=== PATIENT | female | born 1985 | race Hispanic/Latino ===

== ENCOUNTER 2018-04-10 07:11 | Day surgery (SDC) | payer BC ==
[~2018-04-10] VITALS: Ht 160 cm; Wt 69.9 kg
[2018-04-19 16:45] VITALS: BP 129/76
[2018-04-19 16:58] LABS: BASOPHILS % (AUTO) 0.7 % (0.0-5.0); EOSINOPHILS % (AUTO) 2.7 % (0.0-8.0); HEMATOCRIT 39.4 % (36-48); LYMPHOCYTES % (AUTO) 28.2 % (21.0-51.0); MEAN CORPUSCULAR HEMOGLOBIN 29.9 pg (27.0-33.0); MEAN CORPUSCULAR HGB CONC 33.2 g/dL (32.0-36.0); MEAN CORPUSCULAR VOLUME 90.2 fL (79-99); MONOCYTES % (AUTO) 7.6 % (3.0-13.0); NEUTROPHILS % (AUTO) 60.8 % (40.0-77.0); PLATELET COUNT (AUTO) 335 K/uL (130-400); RED BLOOD CELL COUNT(AUTO) 4.37 MIL/uL (4.00-5.50); RED CELL DISTRIBUTION WIDTH 13.1 % (11.0-15.5); WHITE BLOOD COUNT (AUTO) 10.8 K/uL (4.8-10.8)
[2018-04-19] MEDS ORDERED: MONT10TA24 PO (17:01)
[2018-04-20] VITALS (15 sets, daily range): BP systolic 102–120; BP diastolic 58–73
[2018-04-20] MEDS ORDERED: CALDOLOR 800MG+NS 250ML 250 ML IV SCH (06:00)
[2018-04-20] MEDS: CEFAZOLIN SODIUM 1 GM VIAL IVP SCH ×2 (06:00→10:05)
[2018-04-20] MEDS ORDERED: PROPOFOL 10 MG/ML 20ML VIAL IV ONE ×2 (07:54→09:57)
[2018-04-20] MEDS ORDERED: LIDOCAINE PF 2% 5ML ABBOJECT ONE ×2 (07:54→09:57)
[2018-04-20] MEDS ORDERED: MIDAZOLAM HCL 1 MG/ML 2ML VIAL ONE (07:54)
[2018-04-20] MEDS ORDERED: ROCURONIUM 10MG/1ML SYR 10 MG/ML ML ONE (07:54)
[2018-04-20] MEDS ORDERED: FENTANYL CITRATE PF 50 MCG/1 ML 2ML VIAL ONE ×2 (07:55→09:58)
[2018-04-20] MEDS: LACTATED RINGERS 1000ML 1,000 ML IV SCH ×2 (07:55→10:05)
[2018-04-20] MEDS ORDERED: STRONG IODINE SOLUTION 30ML BOTTLE ONE (07:57)
[2018-04-20] MEDS ORDERED: FERRIC SUBSULFATE TP SCH (08:00)
[2018-04-20] MEDS ORDERED: ONDANSETRON HCL 4 MG/2 ML VIAL ONE (09:46)
[2018-04-20] MEDS ORDERED: MORPHINE SULFATE 4 MG/1ML SYG ONE (10:57)
[2018-04-20] MEDS ORDERED: MEPERIDINE-PF 25 MG/ML SYG ONE (11:09)
[2018-04-20] MEDS ORDERED: IBUPROFEN 800 MG TAB PO SCH (12:45)
== END 2018-04-20 13:08 | disposition home or self-care (01) ==
LOC: SUH 07:11 → DAH 04-20 07:11 → SUH 04-20 13:08
PROVIDERS: ATTEND Obstetrics & Gynecology
DX: N87.9 Dysplasia of cervix uteri, unspecified (principal); Z98.890 Other specified postprocedural states; Z79.899 Other long term (current) drug therapy
CPT/HCPCS: 36415; 57520; 84702; 85025; 86850; 86900; 86901; 88305; A4351; A4510; A4600; J0690; J1741; J2001 ×2; J2175; J2270; J2405; J2704 ×2; J3010 ×2; J7120; J2250

== ENCOUNTER → 2019-11-26 | Outpatient (CLI) | payer BC ==
[~2019-11-26] MED LIST: MONT10TA26 PO
== END | disposition home or self-care (01) ==
LOC: RAH 13:40
PROVIDERS: ATTEND Physical Medicine & Rehabilitation
DX: M47.812 Spondylosis without myelopathy or radiculopathy, cervical region (principal); M25.78 Osteophyte, vertebrae; M99.01 Segmental and somatic dysfunction of cervical region
CPT/HCPCS: 72052